=== PATIENT | male | born 1945 | race Caucasian/White ===

== ENCOUNTER 2016-08-03 10:11 | Outpatient (CLI) | payer OTHER ==
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
== END 2016-08-03 23:00 ==
LOC: NM SRH 10:11
DX: K30 Functional dyspepsia (principal); Z98.84 Bariatric surgery status

== ENCOUNTER → 2016-08-05 | Outpatient (CLI) | payer OTHER ==
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
== END ==
LOC: XR SRH 11:00
DX: K21.0 Gastro-esophageal reflux disease with esophagitis (principal); Z98.0 Intestinal bypass and anastomosis status